=== PATIENT | female | born 1955 | race Caucasian/White ===

== ENCOUNTER → 2016-08-15 | Outpatient (CLI) | payer BC ==
[2016-08-15 16:40] LABS: CH 32.7; CHCM 33.4; HCT 40.8 % (34.0-46.0); HDW 2.81; HGB 13.7 gm/dL (11.4-16.0); MCH 33.2 pg (25.0-35.0); MCHC 33.7 g/dL (31.0-37.0); MCV 98.5 fL (80.0-100.0); Mean Platelet Volume 7.6; RBC 4.14 m/uL (3.80-5.40); RDW 13.2 % (11.5-15.5)
[2016-08-15 16:48] LABS: Partial Thromboplastin Time 25.5 sec (22.0-30.0); Prothrombin Time 10.3 sec (9.0-12.0)
[2016-08-15 16:54] LABS: ALT 45 U/L (9-52); AST 29 U/L (14-36); Alkaline Phosphatase 103 U/L (38-126); Anion Gap 15 mmol/L; Blood Urea Nitrogen 13 mg/dL (7-17); Calcium 9.4 mg/dL (8.4-10.2); Carbon Dioxide 25 mmol/L (22-30); Chloride 103 mmol/L (98-107); Cholesterol 237 mg/dL (<200); Glucose 199 mg/dL (74-99); HDL Cholesterol 65 mg/dL (40-60); Iron 70 ug/dL (37-170); Magnesium 1.7 mg/dL (1.6-2.3); Non-African American GFR(MDRD) >60 (>60 ml/min/1.73 sqM); Phosphorous 4.6 mg/dL (2.5-4.5); Potassium 4.4 mmol/L (3.5-5.1); Sodium 143 mmol/L (137-145); Total Bilirubin 0.5 mg/dL (0.2-1.3); Total Protein 7.6 g/dL (6.3-8.2); Triglycerides 358 mg/dL (<150)
[2016-08-15 17:04] LABS: % Iron Saturation 22.4 % (20-50); Prealbumin 30 mg/dL (18-36); Total Iron Binding Capacity 313 ug/dL (265-497)
[2016-08-15 17:59] LABS: Vitamin B12 720 pg/mL (239-931)
[2016-08-15 20:09] LABS: Hemoglobin A1C 6.5 % (4.2-6.1)
[2016-08-18 16:39] LABS: Selenium 161 mcg/L (63-160)
== END | disposition home or self-care (01) ==
LOC: LABWHC1 16:14
PROVIDERS: ATTEND Surgery Plastic and Reconstructive Surgery
DX: E66.01 Morbid (severe) obesity due to excess calories (principal); E21.1 Secondary hyperparathyroidism, not elsewhere classified; E89.1 Postprocedural hypoinsulinemia; D50.8 Other iron deficiency anemias; K90.89 Other intestinal malabsorption; E44.0 Moderate protein-calorie malnutrition; E55.9 Vitamin D deficiency, unspecified; K74.1 Hepatic sclerosis; T56.894A Toxic effect of other metals, undetermined, initial encounter; K90.9 Intestinal malabsorption, unspecified
CPT/HCPCS: 36415; 80053; 80061; 82306; 82525; 82607; 82728; 82746; 83036; 83540; 83550; 83735; 83970; 84100; 84134; 84255; 84425; 84443; 84590; 84630; 85027; 85610; 85730

== ENCOUNTER → 2016-10-18 | Outpatient (CLI) | payer BC ==
[2016-10-18 16:51] VITALS: BP 140/90; PULSE 76; TEMP 98.2
--- NOTE | 2016-12-10 11:06 | PN ---
DATE OF SERVICE: 10/18/2016 CHIEF COMPLAINT: Follow-up gastric bypass. HISTORY OF PRESENT ILLNESS: Keesha Gar is a 61-year-old female, status post Last-En-Y gastric bypass, now 4 years ago August 2012. Her highest lifetime weight 303 pounds. Today she comes in weighing 186 pounds. Her lifetime weight loss is 117 pounds. Percent weight loss 72%. Body mass index reduced from 53.8 down to 33. She is still 36 pounds overweight. Since her last evaluation a year ago she has lost another 10 pounds. Separately, she has a history of panniculectomy performed over a year ago and had drainage. She reports now low energy. She presents for further follow-up. Her diabetes is under better control. PAST MEDICAL HISTORY: 1. Morbid obesity. 2. Diabetes mellitus type 2. 3. Depression. 4. Neuropathy. 5. Dyslipidemia. 6. Hypertension. 7. Osteoarthritis. 8. Stress urinary incontinence. 9. Chronic lower back pain. PAST SURGICAL HISTORY: 1. Tonsillectomy. 2. Knee arthroscopy. 3. Last-en-T gastric bypass. 4. Upper endoscopy. 5. Last-en-Y gastric bypass. 6. Panniculectomy. 7. Drainage of abdominal wall seroma. MEDICATIONS: 1. Vitamin E. 2. Calcium. 3. Aspirin. 4. Demadex. 5. Hyzaar. 6. Cozaar. 7. Metformin. 8. Procardia. 9. Cymbalta. 10. Vitamin B12. 11. Vitamin D. 12. Alpha lipoic acid. ALLERGIES: 1. CAPTOPRIL. 2. METAL. SOCIAL HISTORY: No active tobacco use. FAMILY HISTORY: Pertinent for morbid obesity including diabetes. REVIEW OF SYSTEMS: CONSTITUTIONAL: [place] body weight 140 pounds. Personal weight of 186 pounds. Maintained weight loss 117 pounds. Percentage weight loss 72%. Body mass total point reduction of 21 points from 53.8 down to 33. Her lifetime highest weight of 303 pounds. Total weight loss lifetime of 107 pounds. GASTROINTESTINAL: No reports of dumping syndrome. Has intermittent nausea and vomiting. CARDIOVASCULAR: She has been placed on increased medications for her blood pressure. ENDOCRINE: She is now been placed back on metformin. She is off all insulin medications, however. MUSCULOSKELETAL: Still reports lower back pain. HEENT: Wears glasses. Denies any trouble hearing. RESPIRATORY: She no longer uses CPAP machine. No reports of dyspnea on exertion. NEURO: No reports of stroke or seizure disorder. PSYCH: No reports of depression or suicidal ideation. HEMATOLOGIC: Denies any DVTs or pulmonary embolisms in her family. PHYSICAL EXAM: VITAL SIGNS: 98.2, 76, 16, 140/90; 5 foot 3, 186 pounds. Body mass index of 33. ABDOMEN: Soft and nondistended. GENERAL: Well-developed female in no acute distress. MUSCULOSKELETAL: No clubbing, cyanosis. HEENT: No sclerae icterus. Extraocular movements attack. Moist buccal mucosa. NECK: Supple without lymphadenopathy. CHEST: Unlabored respirations. Equal bilateral excursions. CARDIOVASCULAR: Regular rate and rhythm. NEURO: No focal or lateralizing signs. Cranial nerves 2 through 12 grossly within normal limits. PSYCH: Appropriate affect. Alert and oriented to person, place and time. LABS: Bariatric metabolic panel reviewed, demonstrating white count elevated at 12. Hemoglobin was normal at 13.7. Glucose elevated at 199. Hemoglobin A1c was improved from 8.6 down to 6.5. Phosphorus elevated at 4.6. Triglycerides elevated at 358, cholesterol elevated at 237, LDL 100, HDL 65. Vitamin D low at 24.9. Parathyroid hormone elevated. ASSESSMENT: 1. Morbid obesity due to excess caloric intake. 2. Body mass index lifetime reduced from 53.7 to 33. 3. Status post Last-en-Y gastric bypass. 4. History of panniculectomy. 5. Diabetes, type 2. 6. Hypertensive heart disease without cardiomyopathy. 7. Hypertriglyceridemia. 8. Vitamin D deficiency. 9. Secondary hyperparathyroidism. 10. Selenium excess. 11. Chronic fatigue. PLAN: 1. Recommend vitamin D supplement. 2. Recommend calcium intake of over 1500 grams daily. 3. She has moderately elevated triglycerides for which cholesterol and triglyceride reducing agent may be of benefit. 4. She has elevated selenium for which selenium sources including food sources were described to her for reduction. 5. With her history of fatigue, do recommend evaluation for obstructive sleep apnea as a source of generalized fatigue. [facility]
== END | disposition home or self-care (01) ==
LOC: BARWHC3 15:27
PROVIDERS: ATTEND Surgery Plastic and Reconstructive Surgery
DX: Z48.815 Encounter for surgical aftercare following surgery on the digestive system (principal); Z98.84 Bariatric surgery status; Z79.899 Other long term (current) drug therapy; E66.01 Morbid (severe) obesity due to excess calories; Z68.33 Body mass index [BMI] 33.0-33.9, adult; E11.9 Type 2 diabetes mellitus without complications; I11.9 Hypertensive heart disease without heart failure; E55.9 Vitamin D deficiency, unspecified; E21.3 Hyperparathyroidism, unspecified; R79.89 Other specified abnormal findings of blood chemistry; R53.82 Chronic fatigue, unspecified; Z88.8 Allergy status to other drugs, medicaments and biological substances; Z91.048 Other nonmedicinal substance allergy status; F32.9 Major depressive disorder, single episode, unspecified; Z79.84 Long term (current) use of oral hypoglycemic drugs
CPT/HCPCS: 99211

== ENCOUNTER → 2018-03-20 | Outpatient (CLI) | payer BC ==
[2018-03-20 15:14] VITALS: BP 188/79; PULSE 59; RESP 16; TEMP 98.1; BMI 31.9
--- NOTE | 2018-03-20 16:12 | P.PN ---
Subjective Progress Note Date: 03/20/18 HPI: Reports new onset nausea and vomiting. She reports new belching. She reports more weight loss. She has new dysphagia. ABDOMEN: PLAN: 1. Recommend CT of the abdomen and pelvis 2. Recommend EGD with dilation 3. Recommend labs Objective - Vital Signs Vital signs: Vital Signs Temp 98.1 F 03/20/18 15:11 Pulse 59 L 03/20/18 15:11 Resp 16 03/20/18 15:11 BP 188/79 03/20/18 15:11 Pulse Ox Intake & Output 03/19/18 03/20/18 03/20/18 18:59 06:59 18:59 Weight 81.817 kg
[2018-03-20 17:07] LABS: HCT 34.9 % (34.0-46.0); MCH 30.2 pg (25.0-35.0); MCHC 31.4 g/dL (31.0-37.0); MCV 96.3 fL (80.0-100.0); Mean Platelet Volume 6.9; Platelet Count 207 k/uL (150-450); RBC 3.62 m/uL (3.80-5.40)
[2018-03-20 17:15] LABS: Partial Thromboplastin Time 23.9 sec (22.0-30.0); Prothrombin Time 9.7 sec (9.0-12.0)
[2018-03-20 17:21] LABS: Albumin 3.9 g/dL (3.5-5.0); Magnesium 1.9 mg/dL (1.6-2.3); Phosphorus 4.5 mg/dL (2.5-4.5); Potassium 4.4 mmol/L (3.5-5.1); Total Bilirubin 0.3 mg/dL (0.2-1.3); Total Protein 6.8 g/dL (6.3-8.2)
[2018-03-21 02:30] LABS: Parathyroid Hormone Intact 254.8 pg/mL (14.0-72.0)
[2018-03-21 03:49] LABS: Iron Saturation 18.85 (12.00-45.00)
[2018-03-21 04:15] LABS: Folate, Serum 21.8 ng/mL
[2018-03-21 04:39] LABS: Hemoglobin A1C 6.3 % (4.0-6.0)
[2018-03-21 12:04] LABS: Zinc, Serum 53 ug/dL (60-130)
[2018-03-21 13:18] LABS: Vitamin A 79 ug/dL (38-106)
[2018-03-21 14:38] LABS: Vitamin B1 39 ug/L (38-122)
== END | disposition home or self-care (01) ==
LOC: BARWHC3 14:13
PROVIDERS: ATTEND Surgery Plastic and Reconstructive Surgery
DX: R13.10 Dysphagia, unspecified (principal); R11.2 Nausea with vomiting, unspecified; R14.2 Eructation; E66.01 Morbid (severe) obesity due to excess calories; E44.0 Moderate protein-calorie malnutrition; E21.1 Secondary hyperparathyroidism, not elsewhere classified; D50.9 Iron deficiency anemia, unspecified; E89.1 Postprocedural hypoinsulinemia; E55.9 Vitamin D deficiency, unspecified; K74.1 Hepatic sclerosis; N19 Unspecified kidney failure; K50.90 Crohn's disease, unspecified, without complications; Z68.32 Body mass index [BMI] 32.0-32.9, adult
CPT/HCPCS: 80053; 80061; 82306; 82525; 82607; 82728; 82746; 83036; 83540; 83550; 83735; 83970; 84100; 84134; 84255; 84425; 84443; 84590; 84630; 85027; 85610; 85730; 99211

== ENCOUNTER → 2018-03-25 | Day surgery (SDC) | payer BC ==
[2018-03-22 08:22] VITALS: BMI 31.8
--- NOTE | 2018-03-24 11:57 | P.GSHP ---
History of Present Illness H&P Date: 03/25/18 CHIEF COMPLAINT: GERD HISTORY OF PRESENT ILLNESS: The patient is a 62-year-old female who presents reports gastroesophageal reflux disease. Upper endoscopy was offered for further evaluation and management. PAST MEDICAL HISTORY: Please see list. PAST SURGICAL HISTORY: Please see list. MEDICATIONS: Please see list. ALLERGIES: Please see list. SOCIAL HISTORY: No illicit drug use FAMILY HISTORY: No reports of Crohn disease or ulcerative colitis. REVIEW OF ORGAN SYSTEMS: CONSTITUTIONAL: No reports of fevers or chills. GI: Denies any blood in stools or constipation. PHYSICAL EXAM: VITAL SIGNS: Stable GENERAL: Well-developed and pleasant in no acute distress. HEENT: No scleral icterus. Extraocular movements grossly intact. Moist buccal mucosa. NECK: Supple without lymphadenopathy. CHEST: Unlabored respirations. Equal bilateral excursions. CARDIOVASCULAR: Regular rate and rhythm. Distal 2+ pulses. ABDOMEN: Soft, nondistended. MUSCULOSKELETAL: No clubbing, cyanosis, or edema. ASSESSMENT: 1. Gastroesophageal reflux disease PLAN: 1. Recommend proceeding with an upper endoscopy Past Medical History Past Medical History: Diabetes Mellitus, Hypertension, Sleep Apnea/CPAP/BIPAP Additional Past Medical History / Comment(s): NEUROPATHY LEGS, FEET & HANDS/ unsteady, LOWER BACK PAIN, Abdominal infection after paniculectomy in 2014. History of Any Multi-Drug Resistant Organisms: None Reported Past Surgical History: Bariatric Surgery, Tonsillectomy Additional Past Surgical History / Comment(s): VIJAYA-EN-Y GASTRIC BY-PASS 08/2012 ,PANNICULECTOMY 08/2014; Cataracts; Colonoscopy Past Anesthesia/Blood Transfusion Reactions: No Reported Reaction, Motion Sickness Smoking Status: Never smoker - Past Family History Father Family Medical History: Diabetes Mellitus, Myocardial Infarction ([place]) Medications and Allergies Home Medications Medication Instructions Recorded Confirmed Type Multivitamins, Thera [Multivitamin 1 tab PO DAILY 12/08/13 03/22/18 History (formulary)] Losartan Potassium [Cozaar] 100 mg PO DAILY 09/29/15 03/22/18 History NIFEdipine XL [Procardia XL] 30 mg PO HS 09/29/15 03/22/18 History Cholecalciferol [Vitamin D3] 1,000 unit PO DAILY 10/15/15 03/22/18 History metFORMIN HCL 1,000 mg PO BID #60 tablet 12/13/15 03/22/18 Rx Aspirin 81 mg PO DAILY 03/21/16 03/22/18 History Ergocalciferol [Vitamin D2 50,000 unit PO Q7D #12 cap 10/18/16 03/22/18 Rx (DRISDOL)] Calcium Carb/Magnesium Ox,Carb 1 tab PO DAILY 03/20/18 03/22/18 History [Greg-Mag 500-250 MG Chewable] Cyanocobalamin (Vitamin B-12) 1,000 mcg SL DAILY 03/20/18 03/22/18 History [Vitamin B-12] DULoxetine HCL [Cymbalta] 30 mg PO DAILY 03/20/18 03/22/18 History Atorvastatin [Lipitor] 20 mg PO DAILY 03/22/18 03/22/18 History Allergies Allergy/AdvReac Type Severity Reaction Status Date / Time captopril [From Capoten] AdvReac Intermediate PERSISTANT Verified 03/22/18 08:16 COUGH metal Allergy Mild Rash/Hives Uncoded 03/22/18 08:16
[~2018-03-25] MED LIST: LACTATED RINGERS 1,000 ML IV SCH; LIDOCAINE 1% INJ 10MG/ML (20 ML MDV) ONE; PROPOFOL 10 MG/ML 20 ML VIAL IV ONE
[2018-03-25 12:08] VITALS: RESP 16; TEMP 97.9
[2018-03-25 12:21] LABS: Glucose,Whole Blood 107 mg/dL (75-99)
[2018-03-25 13:02] VITALS: BP 141/75; PULSE 59
--- NOTE | 2018-03-25 15:10 | P.PCN ---
Date of Procedure: 03/25/18 Description of Procedure: PREOPERATIVE DIAGNOSIS: Dysphagia. s/p Last-en-y gastric bypass. Nausea with vomiting. Morbid obesity. Diabetes type 2. POSTOPERATIVE DIAGNOSIS: Dysphagia. s/p Last-en-y gastric bypass. Nausea with vomiting. Morbid obesity. Diabetes type 2. Gastrojejunal stricture without chronic ulcer without perforation Foreign body along anastomosis OPERATION: Esophagogastrojejunoscopy with balloon dilatation from 15 to 20 mm. Esophagogastrojejunoscopy with removal of foreign body from gastrojejunal anastomosis SURGEON: Gregoria Cannon MD ANESTHESIA: MAC. INDICATIONS: The patient is a 62-year-old female who presents with a history of dysphagia, gastric bypass including new-onset nausea and vomiting. Benefits and risks of the procedure were described. Informed consent was obtained. DESCRIPTION: The patient was brought into the endoscopy suite and laid in the left lateral decubitus position. After a timeout was confirmed, the procedure was initiated. An Olympus gastroscope was passed along the posterior oropharynx down to the distal esophagus where the squamocolumnar junction was unremarkable. The gastric pouch was entered. A gastrojejunal stricture of 15 mm was found as the adult gastroscope was 9.5 mm in size. A Isentio balloon dilator was placed through the scope. Final insufflation up to 20 mm was performed with a total of 2 minutes. The scope was advanced up to 60 cm from the incisors into the Last limb. The mucosa of the gastrojejunal anastomosis was intact. No chronic gastrojejunal marginal ulcer was encountered. No full-thickness injury was encountered. Retained emmett were found along the anastomosis and removed using cold forceps. The GI tract was desufflated. The patient tolerated the procedure well. FINDINGS: Squamocolumnar junction unremarkable at 37 cm. Stricture of approximately 15 mm encountered. No chronic gastrojejunal ulceration encountered. Successful balloon dilatation to 20 mm. Emmett along the anastomosis removed RECOMMENDATIONS: Upper endoscopy as needed Plan - Discharge Summary New Discharge Prescriptions: No Action Multivitamins, Thera [Multivitamin (formulary)] 1 tab PO DAILY Losartan Potassium [Cozaar] 100 mg PO DAILY NIFEdipine XL [Procardia XL] 30 mg PO HS Cholecalciferol [Vitamin D3] 1,000 unit PO DAILY metFORMIN HCL 1,000 mg PO BID #60 tablet Aspirin 81 mg PO DAILY Ergocalciferol [Vitamin D2 (DRISDOL)] 50,000 unit PO Q7D #12 cap Calcium Carb/Magnesium Ox,Carb [Greg-Mag 500-250 MG Chewable] 1 tab PO DAILY DULoxetine HCL [Cymbalta] 30 mg PO DAILY Cyanocobalamin (Vitamin B-12) [Vitamin B-12] 1,000 mcg SL DAILY Atorvastatin [Lipitor] 20 mg PO DAILY Discharge Medication List Multivitamins, Thera [Multivitamin (formulary)] 1 tab PO DAILY 12/08/13 [History ] Losartan Potassium [Cozaar] 100 mg PO DAILY 09/29/15 [History] NIFEdipine XL [Procardia XL] 30 mg PO HS 09/29/15 [History] Cholecalciferol [Vitamin D3] 1,000 unit PO DAILY 10/15/15 [History] metFORMIN HCL 1,000 mg PO BID #60 tablet 12/13/15 [Rx] Aspirin 81 mg PO DAILY 03/21/16 [History] Ergocalciferol [Vitamin D2 (DRISDOL)] 50,000 unit PO Q7D #12 cap 10/18/16 [Rx] Calcium Carb/Magnesium Ox,Carb [Greg-Mag 500-250 MG Chewable] 1 tab PO DAILY 09/02 [History] Cyanocobalamin (Vitamin B-12) [Vitamin B-12] 1,000 mcg SL DAILY 03/20/18 [ History] DULoxetine HCL [Cymbalta] 30 mg PO DAILY 03/20/18 [History] Atorvastatin [Lipitor] 20 mg PO DAILY 03/22/18 [History] Follow up Appointment(s)/Referral(s): Gregoria Cannon MD [STAFF PHYSICIAN] - As Needed Patient Instructions/Handouts: *Surgery [facility] - (Anesthesia) Discharge Instructions Outpatient Surgery, Esophageal Dilation (DC), Upper Endoscopy (DC)
== END ==
LOC: ORWHC2ENDO 11:26
PROVIDERS: ATTEND Surgery Plastic and Reconstructive Surgery
DX: K22.2 Esophageal obstruction (principal); Z98.84 Bariatric surgery status; I10 Essential (primary) hypertension; E11.42 Type 2 diabetes mellitus with diabetic polyneuropathy; Z79.84 Long term (current) use of oral hypoglycemic drugs; G47.33 Obstructive sleep apnea (adult) (pediatric); Z99.89 Dependence on other enabling machines and devices; Z79.82 Long term (current) use of aspirin; Z79.899 Other long term (current) drug therapy; Z88.8 Allergy status to other drugs, medicaments and biological substances; Z91.09 Other allergy status, other than to drugs and biological substances; E66.01 Morbid (severe) obesity due to excess calories; Z68.31 Body mass index [BMI] 31.0-31.9, adult
CPT/HCPCS: 43247; 43249; J2001; J2704

== ENCOUNTER → 2018-03-25 | Outpatient (CLI) | payer BC ==
--- NOTE | 2018-03-25 16:04 | CT ---
EXAMINATION TYPE: CT abdomen pelvis wo con DATE OF EXAM: 03/25/2018 COMPARISON: 12/09/2015 INDICATION: Generalized abdominal pain DLP: 639.8 mGycm, Automated exposure control for dose reduction was used. CONTRAST: None TECHNIQUE: Axial images were obtained from above the diaphragm to the pubic rami in the axial plane a t 5 mm thick sections. Reconstructed images are reviewed on the computer in the coronal plane. FINDINGS: Limited CT sections are obtained the lung bases. The lung bases are clear. Minimal coronary artery calcifications present. CT ABDOMEN: Postsurgical changes are through the stomach. Liver: Normal Spleen: Normal. Splenule is likely anterior to the inferior left splenic tip. Pancreas: Normal Adrenal glands: The adrenal glands are normal. Gallbladder: Normal Kidneys: No masses are evident. No hydronephrosis is present. No cysts are present. There is a 0.3 cm calcification without obstruction in the anterior mid left kidney. Aorta: Vascular calcification is within the aorta. Inferior vena cava: Normal. CT PELVIS: Loops of bowel within the abdomen and pelvis are normal. There are loops of bowel which are incom pletely distended or lack oral contrast limiting their evaluation. There appears to be some thickening of the rectum. Additional workup of this area is recommended. Appendix: Normal as visualized. Urinary bladder: Normal. Genitourinary structures: Uterus and adnexal regions are normal. Osseous structures: No suspicious lytic or sclerotic lesions. IMPRESSIONS: 1. Appears to be diffuse thickening of the nondistended rectum. Additional workup is recommended. Ne oplasm is not excluded. 2. Nonobstructing 0.3 cm mid left renal stone.
== END | disposition home or self-care (01) ==
LOC: RADCTMAIN 13:35
PROVIDERS: ATTEND Surgery Plastic and Reconstructive Surgery
DX: N20.0 Calculus of kidney (principal)
CPT/HCPCS: 74176

== ENCOUNTER → 2018-12-24 | Outpatient (CLI) | payer BC ==
[2018-12-24 13:49] LABS: HCT 35.6 % (34.0-46.0); HGB 11.6 gm/dL (11.4-16.0); MCH 31.1 pg (25.0-35.0); MCHC 32.5 g/dL (31.0-37.0); MCV 95.7 fL (80.0-100.0); Mean Platelet Volume 7.1; Platelet Count 243 k/uL (150-450); RBC 3.72 m/uL (3.80-5.40); RDW 13.4 % (11.5-15.5); WBC 9.4 k/uL (3.8-10.6)
[2018-12-24 14:15] LABS: INR 0.9 (<1.2); Prothrombin Time 9.8 sec (9.0-12.0)
[2018-12-24 19:16] LABS: Parathyroid Hormone Intact 303.6 pg/mL (14.0-72.0)
[2018-12-24 20:03] LABS: African American GFR (CKD) 50.9 (60.0-200.0); Albumin 4.3 g/dL (3.80-4.90); Albumin/Globulin Ratio 1.95 (1.60-3.17); Anion Gap 11.8 mmol/L (4.00-12.00); BUN/Creat Ratio 15.38 Ratio (12.00-20.00); Carbon Dioxide 20.2 mmol/L (21.6-31.8); Globulin 2.2 g/dL (1.6-3.3); Iron Saturation 26.49 (12.00-45.00); LDL Cholesterol,Calculated 59.4 mg/dL (0.0-131.0); Magnesium 2.1 mg/dL (1.5-2.4); Potassium 4.9 mmol/L (3.5-5.5); Total Bilirubin 0.3 mg/dL (0.3-1.2); Total Protein 6.5 g/dL (6.2-8.2); VLDL Calculation 49.6 mg/dL (5.00-40.00)
[2018-12-24 20:11] LABS: Vitamin D 25 Hydroxy 24.6 ng/mL (30.0-100.0)
[2018-12-24 20:41] LABS: Folate, Serum >24.0 ng/mL; Vitamin B12 >4000.0 pg/mL (211-911)
[2018-12-24 21:57] LABS: Hemoglobin A1C 7.3 % (4.0-6.0)
[2018-12-25 12:09] LABS: Zinc, Serum 63 ug/dL (60-130)
[2018-12-25 15:01] LABS: Vitamin A 78 ug/dL (38-106)
[2018-12-26 07:42] LABS: Vit B1(Thiamine) 63 ug/L (38-122)
== END | disposition home or self-care (01) ==
LOC: LABWHC1 12:50
PROVIDERS: ATTEND Surgery Plastic and Reconstructive Surgery
DX: E21.1 Secondary hyperparathyroidism, not elsewhere classified (principal); E89.1 Postprocedural hypoinsulinemia; D50.8 Other iron deficiency anemias; K90.89 Other intestinal malabsorption; E44.0 Moderate protein-calorie malnutrition; E55.9 Vitamin D deficiency, unspecified; K74.1 Hepatic sclerosis; N19 Unspecified kidney failure; K50.90 Crohn's disease, unspecified, without complications
CPT/HCPCS: 36415; 80053; 80061; 82306; 82525; 82607; 82728; 82746; 83036; 83540; 83550; 83735; 83970; 84100; 84134; 84255; 84425; 84443; 84590; 84630; 85027; 85610; 85730

== ENCOUNTER 2024-06-09 06:37 | Day surgery (SDC) | payer BC, MEDICARE ==
[~2024-06-09 06:37] MED LIST changes: -LACTATED RINGERS 1,000 ML IV SCH; +LIDOCAINE 1% (10MG/ML) FOR IV START INTRADERMA PRN; -LIDOCAINE 1% INJ 10MG/ML (20 ML MDV) ONE; -PROPOFOL 10 MG/ML 20 ML VIAL IV ONE
[2024-06-09] MEDS ORDERED: HYDROmorphone 0.5 MG/0.5 ML SYRINGE IVP PRN (07:00)
[2024-06-09] MEDS: IV FLUID CONTINUATION 1,000 ML IV ONE (07:04)
[2024-06-09 07:30] LABS: Basophils % (A) 0 %; Eosinophils # (A) 0.3 k/uL (0-0.7); Eosinophils % (A) 3 %; HCT 25.8 % (34.0-46.0); HGB 8.5 gm/dL (11.4-16.0); Lymphocytes # (A) 1.6 k/uL (1.0-4.8); Lymphocytes % (A) 15 %; MCH 31.7 pg (25.0-35.0); MCHC 32.9 g/dL (31.0-37.0); MCV 96.5 fL (80.0-100.0); Mean Platelet Volume 7.6; Monocytes # (A) 0.4 k/uL (0-1.0); Monocytes % (A) 4 %; Neutrophils # (A) 7.9 k/uL (1.3-7.7); Neutrophils % (A) 77 %; Platelet Count 222 k/uL (150-450); RBC 2.67 m/uL (3.80-5.40); RDW 12.9 % (11.5-15.5); WBC 10.3 k/uL (3.8-10.6)
[2024-06-09 07:34] LABS: Glucose,Whole Blood 84 mg/dL (70-110)
[2024-06-09] MEDS: HEPARIN SODIUM,PORCINE 5,000 UNIT/ML 1 ML VIAL SQ PRN (07:38)
[2024-06-09] MEDS: ONDANSETRON 4 MG/2 ML VIAL IVP ONE (07:38)
[2024-06-09] MEDS: ACETAMINOPHEN TAB 500 MG TAB PO PRN (07:39)
[2024-06-09] MEDS: LACTATED RINGERS 1,000 ML IV SCH (07:39)
[2024-06-09 07:52] LABS: ALT 32 U/L (4-34); African American GFR (CKD) 8 (>60 ml/min/1.73 sqM); Anion Gap 14 mmol/L; Blood Urea Nitrogen 60 mg/dL (7-17); Calcium 8.8 mg/dL (8.4-10.2); Carbon Dioxide 13 mmol/L (22-30); Chloride 114 mmol/L (98-107); Glucose 77 mg/dL (74-99); Non-African American GFR(CKD) 7 (>60 ml/min/1.73 sqM); Sodium 141 mmol/L (137-145); Total Bilirubin 0.5 mg/dL (0.2-1.3); Total Protein 6.8 g/dL (6.3-8.2)
[2024-06-09 07:54] LABS: AST 27 U/L (14-36); Potassium 4.1 mmol/L (3.5-5.1)
[2024-06-09 07:55] LABS: Alkaline Phosphatase 77 U/L (38-126)
[2024-06-09] MEDS ORDERED: PROPOFOL 10 MG/ML 20 ML VIAL IV ONE (08:41)
[2024-06-09] MEDS ORDERED: fentaNYL (PF) 50 MCG/ML 2 ML AMP ONE (08:41)
[2024-06-09] MEDS ORDERED: MIDAZOLAM 2 MG/2 ML VIAL ONE (08:41)
[2024-06-09] MEDS ORDERED: LIDOCAINE 1% INJ 10MG/ML (20 ML MDV) ONE (08:41)
[2024-06-09] MEDS: BUPIVACAINE (PF) 0.25% 30 ML VIAL SQ ONE ×2 (09:08)
[2024-06-09] MEDS: MINERAL OIL 1 APPLIC/ML OIL MISCELLANE ONE (09:20)
[2024-06-09] MEDS ORDERED: HYDROcodone/APAP 5-325MG 1 EACH TAB PO PRN (09:49)
[2024-06-09] MEDS ORDERED: NALOXONE 0.4 MG/ML 1 ML VIAL IV PRN (09:49)
[2024-06-09] MEDS ORDERED: ACETAMINOPHEN TAB 325 MG TAB PO PRN (09:49)
--- NOTE | 2024-06-09 09:54 | P.OP ---
Date of Procedure: 06/09/24 Procedure(s) Performed: PREOPERATIVE DIAGNOSIS: Renal failure POSTOPERATIVE DIAGNOSIS: Same PROCEDURE: Peritoneal dialysis catheter insertion SURGEON: Noe EBL: 5 cc ANESTHESIA: General COMPLICATIONS: None OPERATIVE PROCEDURE: The patient was placed in the operative table in the supine position. The abdomen was prepped and draped in usual sterile fashion. A small horizontal incision was made in the left periumbilical location. Dissection down through the subcutaneous tissues took place using electrocautery. The anterior rectus was divided vertically using the scalpel. The patient did have some thickened scar tissue from her previous panniculectomy and postop infection. The rectus was bluntly. The posterior rectus was visualized. An 0 Vicryl pursestring was placed. A small opening in the posterior rectus fascia and peritoneum took place using a Metzenbaum scissors. There were no adhesions to the suture that was placed. The pigtail catheter was advanced into the pelvis over a stylette without difficulty. No resistance was met. The inner cuff was secured to the fascia using the 0 Vicryl pursestring that was placed. The catheter was tunneled to an exit site in the right lateral lower quadrant. The catheter was connected to the 1 L bag of saline and approximated 800 mL of saline was easily introduced into the peritoneal cavity. The fluid was then allowed to evacuate. The majority of the fluid was returned. The anterior rectus fascia was then reapproximated using a running 0 Vicryl stitch. The subcutaneous tissues reprepped using 3-0 Vicryl sutures and the skin using 4-0 Monocryl sutures. The outpatient dialysis adapter was applied to the end of the catheter. Sterile dressings were then applied after skin glue was placed over the incision. DISPOSITION: Stable to recovery room
[2024-06-09 09:59] VITALS: TEMP 98.5
[2024-06-09 11:09] VITALS: BP 150/77; PULSE 67; RESP 14
[2024-06-09 11:12] LABS: Glucose,Whole Blood 69 mg/dL (70-110)
[2024-06-09 11:32] LABS: Glucose,Whole Blood 105 mg/dL (70-110)
== END 2024-06-09 11:45 | disposition home or self-care (01) ==
LOC: OR 06:37
PROVIDERS: ATTEND Surgery
DX: E11.22 Type 2 diabetes mellitus with diabetic chronic kidney disease (principal); I12.9 Hypertensive chronic kidney disease with stage 1 through stage 4 chronic kidney disease, or unspecified chronic kidney disease; N18.30 Chronic kidney disease, stage 3 unspecified; E11.40 Type 2 diabetes mellitus with diabetic neuropathy, unspecified; E78.5 Hyperlipidemia, unspecified; F32.A Depression, unspecified; G47.30 Sleep apnea, unspecified; M19.90 Unspecified osteoarthritis, unspecified site; Z87.442 Personal history of urinary calculi; Z79.899 Other long term (current) drug therapy; Z79.84 Long term (current) use of oral hypoglycemic drugs; Z98.84 Bariatric surgery status; Z98.890 Other specified postprocedural states; Z91.048 Other nonmedicinal substance allergy status; Z88.1 Allergy status to other antibiotic agents; Z88.8 Allergy status to other drugs, medicaments and biological substances
CPT/HCPCS: 80053; 85025; 49421; J2250; J1644; J0690; J2405; J2003; J3010; J2704; J0665